=== PATIENT | female | born 1970 | race Caucasian/White ===

== ENCOUNTER 2017-10-09 03:13 | Observation (INO) | payer SELFPAY ==
[~2017-10-09] VITALS: Ht 160 cm; Wt 104.8 kg
[~2017-10-09 03:13] MED LIST: METFORMIN
[2017-10-09] MEDS ORDERED: SODIUM CHLORIDE 0.9% 1,000 ML IV ONE ×2 (03:41→05:22)
[2017-10-09] MEDS ORDERED: MECLIZINE 25MG TABLET PO ONE (04:00)
[2017-10-09 04:08] LABS: PARTIAL THROMBOPLASTIN TIME 25.4 sec (23.4-31.0); PROTHROMBIN TIME 10.4 sec (9.4-11.6)
[2017-10-09 04:16] LABS: CARBON DIOXIDE 26 mEq/L (21-32); CHLORIDE 102 mEq/L (98-107); CREATINE KINASE MB FRACTION 1.5 ng/mL (0.5-3.6); TROPONIN I < 0.02 ng/mL (0.00-0.04)
[2017-10-09 04:20] LABS: BASOPHILS % 0.6 % (0.0-2.0); EOSINOPHILS % 1.6 % (0.0-5.0); HEMATOCRIT. 29.6 % (36.0-48.0); HEMOGLOBIN. 8.9 g/dL (12.0-16.0); LYMPHOCYTES % 33.1 % (20.0-50.0); MEAN CORPUSCULAR VOLUME 69.8 fL (81.0-99.0); MONOCYTES % 6.7 % (2.0-8.0); PLATELET 412 x1000/uL (130-400); RED BLOOD CELL COUNT 4.24 mill/uL (4.2-5.4); RED CELL DISTRIBUTION WIDTH 19.4 % (11.6-14.6)
[2017-10-09 04:30] LABS: HCG SCREEN NEGATIVE
[2017-10-09] MEDS ORDERED: MAGNESIUM 1 G PREMIX 100 ML IV ONE (04:45)
[2017-10-09 09:10] VITALS: BP 93/59
[2017-10-09] MEDS ORDERED: METF500T4 PO (09:12)
[2017-10-09] MEDS ORDERED: FERR325T6 PO (09:12)
[2017-10-09 09:45] VITALS: BP 93/51
[2017-10-09] MEDS ORDERED: DEXTROSE 50% WATER 50ML SYRINGE IV PRN (10:15)
[2017-10-09] MEDS ORDERED: SODIUM CHLORIDE 0.9% 1,000 ML IV SCH (10:15)
[2017-10-09] MEDS ORDERED: INFLUENZA VIRUS VACCINE 0.5ML SYR IM ONE (10:45)
[2017-10-09] MEDS ORDERED: PNEUMOCOCCAL 23-VAL P-SAC VAC 0.5 ML IM ONE (10:45)
[2017-10-09 11:24] LABS: BASOPHILS % 1.1 % (0.0-2.0); EOSINOPHILS % 0.4 % (0.0-5.0); HEMATOCRIT. 28.9 % (36.0-48.0); LYMPHOCYTES % 25.4 % (20.0-50.0); MEAN CORPUSCULAR HEMOGLOBIN 21.8 pg (28.0-32.0); MEAN CORPUSCULAR VOLUME 70.1 fL (81.0-99.0); MONOCYTES % 6.3 % (2.0-8.0); NEUTROPHILS % 66.8 % (40.0-76.0); PLATELET 357 x1000/uL (130-400); RED BLOOD CELL COUNT 4.12 mill/uL (4.2-5.4)
[2017-10-09 12:00] VITALS: BP 103/54
[2017-10-09 12:03] LABS: CARBON DIOXIDE 24 mEq/L (21-32); CHLORIDE 106 mEq/L (98-107); T4 FREE 0.91 ng/dL (0.76-1.46); TOTAL IRON BINDING CAPACITY 536 ug/dL (250-450)
[2017-10-09 12:18] LABS: VITAMIN B12 SERUM 583 pg/mL (211-911)
[2017-10-09] MEDS ORDERED: BLOOD SUGAR DIAGNOSTIC STRIP TEST SCH (12:40)
[2017-10-09 12:48] VITALS: BP 103/54
[2017-10-09] MEDS ORDERED: INSULIN LISPRO 100 UNITS/ML SUBCUT SCH (13:10)
[2017-10-10] MEDS ORDERED: PANTOPRAZOLE SODIUM 40 MG/VIAL IV SCH (09:00)
== END 2017-10-09 13:15 | disposition home or self-care (01) ==
LOC: ER 03:13 → 7WST 04:59 → INTOOBSV 04:59 → EDBEDREQ 05:08 → EDBEDREQTM 05:08 → ENRESERV 06:53
PROVIDERS: ADMIT Internal Medicine; ATTEND Internal Medicine
DX: R42 Dizziness and giddiness (principal); D64.9 Anemia, unspecified; E11.9 Type 2 diabetes mellitus without complications; E83.42 Hypomagnesemia; E86.0 Dehydration; R06.00 Dyspnea, unspecified
CPT/HCPCS: 36415; 71010; 80048; 80053; 82553; 82607; 82962; 83540; 83550; 83735; 83880; 84439; 84443; 84484; 84703; 85025; 85610; 85730; 93005; 96361; 96365; 99285; G0378; J3475; J7030; 90686; 90732; J8597

== ENCOUNTER → 2021-01-12 | Outpatient (CLI) | payer OTHER ==
[~2021-01-12] MED LIST changes: +ASCO-316 PO; +CALC-854 PO; +FERR325T6 PO; +METF-414 PO; -METFORMIN
== END | disposition home or self-care (01) ==
LOC: LAB 11:19
PROVIDERS: ATTEND Obstetrics & Gynecology
DX: Z01.812 Encounter for preprocedural laboratory examination (principal); Z20.822 Contact with and (suspected) exposure to COVID-19
CPT/HCPCS: 87426

== ENCOUNTER → 2021-01-13 | Day surgery (SDC) | payer OTHER ==
[~2021-01-13] VITALS: Ht 160 cm; Wt 99.8 kg
[~2021-01-13] MED LIST changes: +FENTANYL CITRATE/PF 50MCG/ML 2ML VIAL ONE; +GLYCOPYRROLATE 0.2 MG/ML 2ML VIAL ONE; +METOCLOPRAMIDE HCL 10MG/2ML VIAL ONE; +MIDAZOLAM HCL 2 MG/2 ML VIAL ONE; +ONDANSETRON HCL 4MG/2ML INJ ONE; +PROPOFOL 200MG/20ML VIAL IV ONE; +SUCCINYLCHOLINE CHLORIDE 200MG/10ML IV ONE
[2021-01-13 09:44] LABS: BASOPHILS % 0.7 % (0.0-2.0); EOSINOPHILS % 1.7 % (0.0-5.0); HEMATOCRIT. 25.6 % (36.0-48.0); HEMOGLOBIN. 7.8 g/dL (12.0-16.0); LYMPHOCYTES % 29.4 % (20.0-50.0); MEAN CORPUSCULAR HEMOGLOBIN 24.3 pg (28.0-32.0); MEAN CORPUSCULAR VOLUME 79.9 fL (81.0-99.0); MEAN PLATELET VOLUME 7.8 fl (7.4-10.4); MONOCYTES % 6.9 % (2.0-8.0); NEUTROPHILS % 61.3 % (40.0-76.0); PLATELET 347 x1000/uL (130-400); RED CELL DISTRIBUTION WIDTH 24.4 % (11.6-14.6)
[2021-01-13 09:46] LABS: PARTIAL THROMBOPLASTIN TIME 27.3 sec (23.4-31.0); PROTHROMBIN TIME 10.9 sec (9.6-11.0)
[2021-01-13 09:49] LABS: CHLORIDE 108 mEq/L (98-107)
[2021-01-13 10:01] LABS: UCG SCREEN NEGATIVE
[2021-01-13 10:02] LABS: CLARITY URINE CLOUDY (CLEAR); COLOR URINE YELLOW (YELLOW); KETONES URINE NEGATIVE (NEGATIVE); LEUKOCYTE ESTERASE URINE 1+ (NEGATIVE); NITRITE URINE NEGATIVE (NEGATIVE); OCCULT BLOOD URINE 3+ (NEGATIVE); PROTEIN URINE 1+ (NEGATIVE); SPECIFIC GRAVITY URINE 1.019 (1.005-1.030); UROBILINOGEN URINE 0.2 E.U./dL (0.2-1.0)
[2021-01-13 10:03] LABS: HCG SCREEN NEGATIVE
[2021-01-13 12:55] LABS: PLATELET ESTIMATE NORMAL
== END | disposition home or self-care (01) ==
LOC: OR 08:17
PROVIDERS: ATTEND Obstetrics & Gynecology
DX: N93.9 Abnormal uterine and vaginal bleeding, unspecified (principal); D25.0 Submucous leiomyoma of uterus; Z79.899 Other long term (current) drug therapy; Z98.890 Other specified postprocedural states
CPT/HCPCS: 36415; 58558; 80053; 81003; 81025; 82962; 84703; 85025; 85610; 85730; 86850; 86900; 86901; 88305; 93005; J0330; J2250; J2405; J2704; J2765; J3010; J3490